=== PATIENT | female | born 1985 | race Two or more races ===

== ENCOUNTER 2017-12-12 11:22 | Emergency (ER) | payer OTHER ==
[~2017-12-12] VITALS: Ht 170.2 cm; Wt 119.3 kg
[~2017-12-12 11:22] MED LIST: ANAPROX275 MG PO; KETO10TA2 PO; NABUMETONE750 MG PO; ORPH100T PO
[2017-12-12] MEDS ORDERED: AMPICILLIN TRI250 MG (11:43)
== END 2017-12-12 20:03 | disposition home or self-care (01) ==
LOC: ER 11:22
DX: J02.8 Acute pharyngitis due to other specified organisms (principal)

== ENCOUNTER 2021-05-08 08:09 | Emergency (ER) | payer OTHER ==
[~2021-05-08] VITALS: Ht 170.2 cm; Wt 124.3 kg
[~2021-05-08 08:09] MED LIST changes: +AMPICILLIN TRI250 MG
[2021-05-08] MEDS ORDERED: PRENATAL + DHA1 EAC1 PO (08:46)
[2021-05-08] MEDS ORDERED: PROMETRIUM200 MG PO (08:46)
== END 2021-05-08 15:12 | disposition home or self-care (01) ==
LOC: ER 08:09
DX: O26.891 Other specified pregnancy related conditions, first trimester (principal); R10.2 Pelvic and perineal pain; Z3A.01 Less than 8 weeks gestation of pregnancy

== ENCOUNTER 2021-08-28 15:30 | Outpatient (CLI) | payer OTHER ==
[~2021-08-28 15:30] MED LIST changes: +PRENATAL + DHA1 EAC1 PO; +PROMETRIUM200 MG PO
== END 2021-08-28 17:47 | disposition home or self-care (01) ==
LOC: PRENATAL 15:30
PROVIDERS: ATTEND Obstetrics & Gynecology Maternal & Fetal Medicine
DX: O35.0XX0 Maternal care for (suspected) central nervous system malformation in fetus, not applicable or unspecified (principal); O35.3XX0 Maternal care for (suspected) damage to fetus from viral disease in mother, not applicable or unspecified; O99.210 Obesity complicating pregnancy, unspecified trimester; O09.219 Supervision of pregnancy with history of pre-term labor, unspecified trimester

== ENCOUNTER 2021-10-02 13:22 | Outpatient (CLI) | payer OTHER | END 2021-10-02 14:47 | disposition home or self-care (01) | LOC: PRENATAL 13:22 | PROVIDERS: ATTEND Obstetrics & Gynecology Maternal & Fetal Medicine | DX: O99.210 Obesity complicating pregnancy, unspecified trimester (principal); O26.849 Uterine size-date discrepancy, unspecified trimester ==

== ENCOUNTER 2021-11-04 21:49 | Outpatient (CLI) | payer OTHER ==
[2021-11-05] MEDS ORDERED: NIFEDIPINE ER30 MG PO (07:54)
== END 2021-11-05 08:45 | disposition home or self-care (01) ==
LOC: OBS/DEL 21:49
PROVIDERS: ATTEND Specialist
DX: O60.03 Preterm labor without delivery, third trimester (principal); Z3A.33 33 weeks gestation of pregnancy

== ENCOUNTER 2021-12-04 06:43 | Inpatient (IN) | payer OTHER ==
[~2021-12-04] VITALS: Ht 170.2 cm; Wt 131.5 kg
[~2021-12-04 06:43] MED LIST changes: +NIFEDIPINE ER30 MG PO
[2021-12-04] MEDS ORDERED: AMPICILLIN SOD500 MG PO (07:37)
== END 2021-12-06 13:38 | disposition home or self-care (01) | DRG 798 ==
LOC: LDR 06:43 → OB/GYN 06:43 → SURG-SUITE 11:08 → LDR 11:11 → OB/GYN 11:25
PROVIDERS: ADMIT Specialist; ATTEND Specialist
PROC: 10E0XZZ Delivery of Products of Conception, External Approach (ICD-10-PCS; principal; 2021-12-04)
PROC: 0UQMXZZ Repair Vulva, External Approach (ICD-10-PCS; 2021-12-04)
PROC: 4A1HXCZ Monitoring of Products of Conception, Cardiac Rate, External Approach (ICD-10-PCS; 2021-12-04)
PROC: 0UB70ZZ Excision of Bilateral Fallopian Tubes, Open Approach (ICD-10-PCS; 2021-12-05)
DX: O71.82 Other specified trauma to perineum and vulva (principal); O99.820 Streptococcus B carrier state complicating pregnancy; Z3A.38 38 weeks gestation of pregnancy; Z20.822 Contact with and (suspected) exposure to COVID-19; Z37.0 Single live birth; Z30.2 Encounter for sterilization